=== PATIENT | female | born 1970 | race Hispanic/Latino ===

== ENCOUNTER 2018-08-25 21:14 | Emergency (ER) | payer SELFPAY | END 2018-08-25 21:48 | disposition home or self-care (01) | LOC: ERS 21:14 | DX: M67.442 Ganglion, left hand (principal); Z86.73 Personal history of transient ischemic attack (TIA), and cerebral infarction without residual deficits | CPT/HCPCS: 99282 ==

== ENCOUNTER 2019-07-12 18:55 | Emergency (ER) | payer SELFPAY ==
[2019-07-12 19:55] LABS: #Basophils 0.1 thou/uL (0.0-0.2); #Eosinphils 0.1 thou/uL (0.0-0.7); #Lymphocytes 2.7 thou/uL (1.20-3.40); #Monocytes 0.4 thou/uL (0.11-0.59); #Neutrophils 3.4 thou/uL (1.40-6.50); %Basophils 1.2 % (0.0-1.0); %Lymphocytes 40.4 % (21.0-51.0); %Monocytes 5.6 % (0.0-10.0); %Neutrophils 50.8 % (42.0-75.0); Hemoglobin 12.9 g/dL (12.0-16.0); Mean Corpuscular HGB CONC 33.6 g/dL (32.0-36.0); Mean Corpuscular Hemoglobin 28.6 pg (27.0-31.0); Mean Corpuscular Volume 85.1 fL (78.0-98.0); Mean Platelet Volume 8.6 fL (7.4-10.4); Platelet Count 242 thou/uL (130-400); Red Blood Cell (RBC) Count 4.52 mill/uL (4.20-5.40); White Blood Cell (WBC) Count 6.8 thou/uL (4.8-10.8)
[2019-07-12] MEDS ORDERED: Dexamethasone 4 mg/ml Vial ONE (20:06)
[2019-07-12] MEDS ORDERED: Ketorolac Tromethamine 30 MG/ML VIAL ONE (20:06)
[2019-07-12] MEDS ORDERED: Metoclopramide HCl 10 MG/2 ML VIAL ONE ×2 (20:06→20:07)
[2019-07-12 20:12] LABS: Bacteria/HPF None Seen HPF (None Seen); Bilirubin Negative (Negative); Blood, Urine 2+ (Negative); Clarity Clear (Clear); Glucose, Urine (Dipstick) Normal (Negative); Leukocyte Negative Leu/uL (Negative); Nitrite Negative (Negative); Protein, Urine (Dipstick) Negative (Neg-Trace); Squamous Epithelial 0-3 HPF (0-3); Urobilinogen Normal mg/dL (Less than 2); WBC/HPF 0-3 HPF (0-3)
[2019-07-12 20:16] LABS: ALT (SGPT) 17 U/L (8-55); AST (SGOT) 16 U/L (5-34); Albumin 4.5 g/dL (3.5-5.0); Alkaline Phosphatase 90 U/L (40-110); Anion Gap 13 mmol/L (10-20); BUN (Urea Nitrogen) 12 mg/dL (7.0-18.7); Bilirubin, Total 0.2 mg/dL (0.2-1.2); CK (CPK) 110 U/L (29-168); Calc. Creatinine Clearance 0 mL/min (70-130); Calcium 9.4 mg/dL (7.8-10.44); Carbon Dioxide 23 mmol/L (22-29); Chloride 106 mmol/L (98-107); Estimated GFR-MDRD 88; Globulin 3.2 g/dL (2.4-3.5); Glucose 105 mg/dL (70-105); Potassium 3.7 mmol/L (3.5-5.1); Protein, Total 7.7 g/dL (6.0-8.3); Sodium 138 mmol/L (136-145)
--- NOTE | 2019-07-12 20:32 | RAD ---
Chest AP view INDICATION: Shortness of breath and asthma COMPARISON: None FINDINGS: Lungs:The lungs are clear Cardiac silhouette:The cardiomediastinal silhouette appears within normal limits. Pulmonary vasculature:Normal Pleural spaces:No pleural effusion or pneumothorax is demonstrated. Upper abdomen:No abnormality seen. Osseous structures: No acute osseous abnormality. Additional findings:None. IMPRESSION: No acute cardiopulmonary abnormality.
--- NOTE | 2019-07-12 21:11 | CT ---
BRAIN CT WITHOUT IV CONTRAST: History: Headache. FINDINGS: No focal mass or midline shift. No intra or extraaxial hemorrhage. Sinuses and mastoids are clear. Th ere is a small amount of air within some of the veins in the left infratemporal fossa and scalp. IMPRESSION: No mass or bleed or other significant acute intracranial process. POS: RRE
== END 2019-07-12 22:12 | disposition home or self-care (01) ==
LOC: ERS 18:55
DX: I10 Essential (primary) hypertension (principal); R51 Headache
CPT/HCPCS: 70450; 71045; 80053; 81003; 81015; 82550; 84484; 85025; 93005; 96365; 96366; 96375; J1100; J1885; J2765

== ENCOUNTER 2019-12-05 08:56 | Emergency (ER) | payer BC ==
[2019-12-05] MEDS ORDERED: Aspirin Chewable 81 MG TAB ONE (09:15)
[2019-12-05 09:48] LABS: #Basophils 0.1 thou/uL (0.0-0.2); #Eosinphils 0.2 thou/uL (0.0-0.7); #Lymphocytes 3.1 thou/uL (1.20-3.40); #Monocytes 0.7 thou/uL (0.11-0.59); #Neutrophils 5.9 thou/uL (1.40-6.50); %Basophils 0.7 % (0.0-1.0); %Eosinophils 2.4 % (0.0-10.0); %Monocytes 7.4 % (0.0-10.0); %Neutrophils 58.6 % (42.0-75.0); Hemoglobin 12.3 g/dL (12.0-16.0); Mean Corpuscular HGB CONC 34.4 g/dL (32.0-36.0); Mean Corpuscular Hemoglobin 29.3 pg (27.0-31.0); Mean Corpuscular Volume 85.4 fL (78.0-98.0); Mean Platelet Volume 8.5 fL (7.4-10.4); Platelet Count 276 thou/uL (130-400); RBC Distribution Width 12.1 % (11.5-14.5); White Blood Cell (WBC) Count 10.1 thou/uL (4.8-10.8)
[2019-12-05 10:02] LABS: ALT (SGPT) 34 U/L (8-55); AST (SGOT) 28 U/L (5-34); Albumin 4.3 g/dL (3.5-5.0); Alkaline Phosphatase 119 U/L (40-110); Anion Gap 15 mmol/L (10-20); BUN (Urea Nitrogen) 13 mg/dL (7.0-18.7); Bilirubin, Total 0.3 mg/dL (0.2-1.2); Calc. Creatinine Clearance 0 mL/min (70-130); Calcium 9.7 mg/dL (7.8-10.44); Carbon Dioxide 22 mmol/L (22-29); Chloride 104 mmol/L (98-107); Estimated GFR-MDRD Greater than 90; Globulin 3.7 g/dL (2.4-3.5); Glucose 122 mg/dL (70-105); Potassium 3.7 mmol/L (3.5-5.1); Sodium 137 mmol/L (136-145)
--- NOTE | 2019-12-05 10:03 | RAD ---
PORTABLE CHEST: INDICATION: Chest pain. COMPARISON: 07/12/2019. FINDINGS: The lungs appear clear. Vasculature normal. Heart and mediastinum appear normal. IMPRESSION: No acute finding. No interval change. POS: AGW
--- NOTE | 2019-12-06 10:34 | EKG ---
Test Reason : Blood Pressure : / mmHG Vent. Rate : 073 BPM Atrial Rate : 073 BPM P-R Int : 146 ms QRS Dur : 076 ms QT Int : 364 ms P-R-T Axes : -04 038 071 degrees QTc Int : 401 ms Normal sinus rhythm Normal ECG Confirmed by TRIXIE FERRARA DO ([id number]), book or script editor BERE [id number] ([id number]) on 12/06/2019 10:34:25 AM Referred By: Confirmed By:TRIXIE FERRARA DO
== END 2019-12-05 10:55 | disposition home or self-care (01) ==
LOC: ERS 08:56
DX: R09.1 Pleurisy (principal); R07.89 Other chest pain; I10 Essential (primary) hypertension; Z86.73 Personal history of transient ischemic attack (TIA), and cerebral infarction without residual deficits; W22.8XXA Striking against or struck by other objects, initial encounter
CPT/HCPCS: 36415; 71045; 80053; 84484; 85025; 93005

== ENCOUNTER 2020-03-25 23:18 | Emergency (ER) | payer BC | END 2020-03-25 23:54 | disposition home or self-care (01) | LOC: ERS 23:18 | DX: T88.1XXA Other complications following immunization, not elsewhere classified, initial encounter (principal); R53.81 Other malaise; I10 Essential (primary) hypertension | CPT/HCPCS: 99283 ==

== ENCOUNTER 2021-04-01 08:22 | Inpatient (IN) | payer BC, SELFPAY ==
[2021-04-01 08:57] LABS: #Basophils 0.1 thou/uL (0.0-0.2); #Eosinphils 0.3 thou/uL (0.0-0.7); #Lymphocytes 3.2 thou/uL (1.20-3.40); #Monocytes 1.1 thou/uL (0.11-0.59); #Neutrophils 8.3 thou/uL (1.40-6.50); %Basophils 0.4 % (0.0-1.0); %Eosinophils 2.4 % (0.0-10.0); %Lymphocytes 24.4 % (21.0-51.0); %Monocytes 8.7 % (0.0-10.0); %Neutrophils 64.1 % (42.0-75.0); Hemoglobin 12.8 g/dL (12.0-16.0); Mean Corpuscular HGB CONC 34.9 g/dL (32.0-36.0); Mean Corpuscular Hemoglobin 30.5 pg (27.0-31.0); Mean Corpuscular Volume 87.2 fL (78.0-98.0); Mean Platelet Volume 8.4 fL (7.4-10.4); Platelet Count 263 thou/uL (130-400); RBC Distribution Width 12.2 % (11.5-14.5); Red Blood Cell (RBC) Count 4.21 mill/uL (4.20-5.40); White Blood Cell (WBC) Count 12.9 thou/uL (4.8-10.8)
[2021-04-01 09:18] LABS: ALT (SGPT) 38 U/L (8-55); AST (SGOT) 31 U/L (5-34); Albumin 4.2 g/dL (3.5-5.0); Alkaline Phosphatase 120 U/L (40-110); Anion Gap 16 mmol/L (10-20); BUN (Urea Nitrogen) 11 mg/dL (7.0-18.7); Bilirubin, Total 0.5 mg/dL (0.2-1.2); Calc. Creatinine Clearance 0 mL/min (70-130); Calcium 9.2 mg/dL (7.8-10.44); Carbon Dioxide 22 mmol/L (22-29); Chloride 101 mmol/L (98-107); Globulin 3.5 g/dL (2.4-3.5); Glucose 124 mg/dL (70-105); Lipase 312 U/L (8-78); Potassium 3.5 mmol/L (3.5-5.1); Protein, Total 7.7 g/dL (6.0-8.3); Sodium 135 mmol/L (136-145)
[2021-04-01] MEDS ORDERED: Ondansetron PF 4 MG/2 ML Vial ONE ×2 (09:26→11:08)
[2021-04-01] MEDS ORDERED: Morphine 4 MG/ML VIAL ONE ×2 (09:26→10:05)
[2021-04-01] MEDS ORDERED: Famotidine/PF 20 mg/2ml Vial ONE ×2 (09:26→09:28)
[2021-04-01 09:59] LABS: Bacteria/HPF None Seen HPF (None Seen); Bilirubin Negative (Negative); Blood, Urine 1+ (Negative); Clarity Clear (Clear); Glucose, Urine (Dipstick) Normal (Negative); Ketone, Urine Negative (Negative); Leukocyte Negative Leu/uL (Negative); Nitrite Negative (Negative); Protein, Urine (Dipstick) 30 mg/dL (Neg-Trace); Urobilinogen Normal mg/dL (Less than 2); WBC/HPF 0-3 HPF (0-3); pH, Urine 6.5 (5.0-9.0)
[2021-04-01 10:00] LABS: Specific Gravity, Urine Greater than 1.060 (1.002-1.036)
[2021-04-01 10:02] LABS: Pregnancy Test - Urine (BHCG) Negative (Negative); Specific Gravity Greater than 1.006 (1.002-1.036)
[2021-04-01 10:03] LABS: Pregu Control Background? CLEAR/WHITE (CLR/WHITE); Pregu Control Bar Appear? YES (CONTROL BAR)
[2021-04-01] MEDS ORDERED: HYDROcodone/Acetaminophen 5/325 mg Tablet PO PRN (10:55)
[2021-04-01] MEDS ORDERED: Acetaminophen 325 MG TAB PO PRN (10:55)
[2021-04-01] MEDS ORDERED: Ondansetron ODT 4 MG TAB PO PRN (10:55)
[2021-04-01] MEDS ORDERED: Ondansetron PF 4 MG/2 ML Vial IVP PRN (10:55)
[2021-04-01] MEDS ORDERED: Acetaminophen 650 MG Suppository PR PRN (10:55)
[2021-04-01] MEDS ORDERED: Iopamidol-370 76% 500 ML 1 ML ONE (11:05)
[2021-04-01 11:37] LABS: Cholesterol 147 mg/dl (< 200 Desired); HDL Cholesterol 49 mg/dL (>60 Neg Risk); LDL Cholesterol, Calculated 79 mg/dL; Magnesium 1.9 mg/dL (1.6-2.6); Phosphorus 4.1 mg/dL (2.3-4.7); Triglycerides 97 mg/dL (Less than 150)
[2021-04-01] MEDS ORDERED: HYDROmorphone 0.5 MG/0.5 ML SYRINGE SLOW IVP SCH (13:00)
[2021-04-01 13:26] VITALS: BMI 28.3
[2021-04-01] MEDS ORDERED: Morphine 4 MG/ML VIAL SLOW IVP PRN (14:27)
[2021-04-01] MEDS ORDERED: Lactated Ringer's 1,000 ML IV SCH (14:45)
[2021-04-01] MEDS ORDERED: diphenhydrAMINE 50 MG/ML VIAL IM PRN (14:53)
[2021-04-01] MEDS ORDERED: Naloxone HCl 0.4 mg/ml Vial IV PRN (14:53)
[2021-04-01] MEDS ORDERED: Zolpidem Tartrate 5 MG TAB PO PRN (14:53)
[2021-04-01] MEDS ORDERED: diphenhydrAMINE 25 MG CAP PO PRN (14:53)
[2021-04-01] MEDS ORDERED: diphenhydrAMINE 50 MG/ML VIAL IVP PRN (14:53)
[2021-04-01] MEDS ORDERED: Communication Order-Pharmacy FS SCH (15:00)
[2021-04-01] MEDS ORDERED: cefTRIAXone\\ROCEPHIN 1 GM in Sodium Chloride 0.9% 100 ML IVPB SCH (15:00)
[2021-04-01] MEDS: Lactated Ringer's 1,000 ML IV SCH ×3 (16:00→22:23)
[2021-04-01 17:34] LABS: Bacteria/HPF None Seen HPF (None Seen); Bilirubin Negative (Negative); Blood, Urine Trace (Negative); Clarity Clear (Clear); Glucose, Urine (Dipstick) Normal (Negative); Ketone, Urine 20 mg/dL (Negative); Leukocyte Negative Leu/uL (Negative); Nitrite Negative (Negative); Protein, Urine (Dipstick) 10 mg/dL (Neg-Trace); RBC/HPF 0-3 HPF (0-3); Specific Gravity, Urine 1.023 (1.002-1.036); Squamous Epithelial None Seen HPF (0-3); Urobilinogen Normal mg/dL (Less than 2); WBC/HPF 0-3 HPF (0-3)
[2021-04-01] MEDS: Promethazine HCl 25 MG/ML VIAL IM PRN (17:52)
[2021-04-01] MEDS: HYDROmorphone 10 mg/100 ml CADD IVPB PRN (19:05)
[2021-04-01 21:13] LABS: SARS-CoV-2 NAA Rapid Test Not Detected (NotDetected)
[2021-04-01] MEDS: Famotidine 20 MG TAB PO SCH (21:45)
[2021-04-02] MEDS: Lactated Ringer's 1,000 ML IV SCH ×3 (01:48→10:18)
[2021-04-02 04:10] LABS: ALT (SGPT) 29 U/L (8-55); AST (SGOT) 21 U/L (5-34); Albumin 3.4 g/dL (3.5-5.0); Alkaline Phosphatase 89 U/L (40-110); Anion Gap 11 mmol/L (10-20); BUN (Urea Nitrogen) 5 mg/dL (7.0-18.7); Bilirubin, Total 0.5 mg/dL (0.2-1.2); Calc. Creatinine Clearance 120 mL/min (70-130); Calcium 8.2 mg/dL (7.8-10.44); Carbon Dioxide 23 mmol/L (22-29); Chloride 104 mmol/L (98-107); Globulin 2.7 g/dL (2.4-3.5); Glucose 106 mg/dL (70-105); Lipase 91 U/L (8-78); Potassium 3.6 mmol/L (3.5-5.1); Protein, Total 6.1 g/dL (6.0-8.3); Sodium 134 mmol/L (136-145)
[2021-04-02] MEDS ORDERED: Electrolyte Replacement Protocol 1 EACH FS SCH (07:00)
[2021-04-02 07:35] LABS: Magnesium 1.7 mg/dL (1.6-2.6)
[2021-04-02] MEDS ORDERED: Magnesium 2 GM/50 ML 2 GM in Premix Bag 1 BAG IVPB SCH (08:45)
[2021-04-02] MEDS: Famotidine 20 MG TAB PO SCH (10:06)
[2021-04-02] MEDS: Amlodipine 5 MG TAB PO SCH (10:06)
[2021-04-02] MEDS: Enoxaparin Sodium 40 MG/0.4 ML SYRINGE SC SCH (10:19)
[2021-04-02] MEDS: Promethazine HCl 25 MG/ML VIAL IM PRN (11:22)
[2021-04-02] MEDS ORDERED: Piperacillin/Tazobactam 3.375 GM in Sodium Chloride 0.9% 100 ML IVPB SCH (14:00)
[2021-04-02] MEDS: D5 1/2 NS w/10 mEq KCl 1,000 ML/1,000 ML BAG IV SCH ×2 (16:23→21:00)
[2021-04-02] MEDS: HYDROmorphone 10 mg/100 ml CADD IVPB PRN (18:56)
[2021-04-02] MEDS: Pantoprazole 40 MG VIAL IVP SCH (21:00)
[2021-04-02] MEDS: Piperacillin/Tazobactam 3.375 GM in Sodium Chloride 0.9% 100 ML IVPB SCH (21:00)
[2021-04-02] MEDS: Ondansetron PF 4 MG/2 ML Vial IVP PRN (21:30)
[2021-04-03] MEDS: D5 1/2 NS w/10 mEq KCl 1,000 ML/1,000 ML BAG IV SCH ×5 (02:31→18:04)
[2021-04-03 04:00] LABS: #Eosinphils 0.3 thou/uL (0.0-0.7); #Lymphocytes 1.4 thou/uL (1.20-3.40); #Monocytes 0.7 thou/uL (0.11-0.59); #Neutrophils 6.6 thou/uL (1.40-6.50); %Basophils 0.5 % (0.0-1.0); %Eosinophils 2.8 % (0.0-10.0); %Lymphocytes 15.8 % (21.0-51.0); %Monocytes 7.3 % (0.0-10.0); %Neutrophils 73.6 % (42.0-75.0); Hemoglobin 9.8 g/dL (12.0-16.0); Mean Corpuscular HGB CONC 34.6 g/dL (32.0-36.0); Mean Corpuscular Hemoglobin 30.7 pg (27.0-31.0); Mean Corpuscular Volume 88.5 fL (78.0-98.0); Mean Platelet Volume 8.4 fL (7.4-10.4); Platelet Count 202 thou/uL (130-400); RBC Distribution Width 11.9 % (11.5-14.5); Red Blood Cell (RBC) Count 3.21 mill/uL (4.20-5.40)
[2021-04-03 04:03] LABS: Hemoglobin A1c 5.2 % (4.0-6.0)
[2021-04-03 04:21] LABS: ALT (SGPT) 34 U/L (8-55); AST (SGOT) 22 U/L (5-34); Albumin 3.4 g/dL (3.5-5.0); Alkaline Phosphatase 91 U/L (40-110); Anion Gap 16 mmol/L (10-20); BUN (Urea Nitrogen) 9 mg/dL (7.0-18.7); Bilirubin, Total 0.4 mg/dL (0.2-1.2); Calc. Creatinine Clearance 108 mL/min (70-130); Calcium 8.1 mg/dL (7.8-10.44); Carbon Dioxide 21 mmol/L (22-29); Chloride 103 mmol/L (98-107); Globulin 2.9 g/dL (2.4-3.5); Glucose 148 mg/dL (70-105); Lipase 29 U/L (8-78); Potassium 3.7 mmol/L (3.5-5.1); Protein, Total 6.3 g/dL (6.0-8.3); Sodium 136 mmol/L (136-145)
[2021-04-03] MEDS ORDERED: Magnesium 2 GM/50 ML 2 GM in Premix Bag 1 BAG IVPB SCH (05:00)
[2021-04-03] MEDS: Piperacillin/Tazobactam 3.375 GM in Sodium Chloride 0.9% 100 ML IVPB SCH ×2 (05:29→14:47)
[2021-04-03] MEDS: Ondansetron PF 4 MG/2 ML Vial IVP PRN (05:29)
[2021-04-03] MEDS: Enoxaparin Sodium 40 MG/0.4 ML SYRINGE SC SCH (08:45)
[2021-04-03] MEDS: Pantoprazole 40 MG VIAL IVP SCH ×2 (08:45→20:22)
[2021-04-03] MEDS: Amlodipine 5 MG TAB PO SCH (08:45)
[2021-04-03] MEDS: Polyethylene Glycol 3350 17 GM Packet PO SCH (08:46)
[2021-04-03] MEDS ORDERED: Clotrimazole 1% Cream 15 GM TUBE TOP SCH (11:30)
[2021-04-03] MEDS: Clotrimazole 1 % Cream 30 GM TUBE TOP SCH (14:47)
[2021-04-03] MEDS ORDERED: D5 1/2 NS w/10 mEq KCl 1,000 ML/1,000 ML BAG IV SCH (15:06)
[2021-04-03] MEDS: Senokot S 8.6-50 MG TAB PO SCH (20:25)
[2021-04-04] MEDS: Morphine 4 MG/ML VIAL SLOW IVP PRN ×3 (03:58→14:32)
[2021-04-04] MEDS: D5 1/2 NS w/10 mEq KCl 1,000 ML/1,000 ML BAG IV SCH ×2 (04:00→22:59)
[2021-04-04 04:27] LABS: ALT (SGPT) 56 U/L (8-55); AST (SGOT) 46 U/L (5-34); Albumin 3.8 g/dL (3.5-5.0); Alkaline Phosphatase 143 U/L (40-110); Anion Gap 12 mmol/L (10-20); BUN (Urea Nitrogen) 6 mg/dL (7.0-18.7); Bilirubin, Total 0.6 mg/dL (0.2-1.2); Calc. Creatinine Clearance 105 mL/min (70-130); Calcium 8.6 mg/dL (7.8-10.44); Carbon Dioxide 27 mmol/L (22-29); Chloride 102 mmol/L (98-107); Globulin 3.2 g/dL (2.4-3.5); Glucose 105 mg/dL (70-105); Lipase 23 U/L (8-78); Potassium 3.7 mmol/L (3.5-5.1); Sodium 137 mmol/L (136-145)
[2021-04-04] MEDS: Enoxaparin Sodium 40 MG/0.4 ML SYRINGE SC SCH (08:45)
[2021-04-04] MEDS: Pantoprazole 40 MG VIAL IVP SCH ×2 (08:45→21:07)
[2021-04-04] MEDS: Polyethylene Glycol 3350 17 GM Packet PO SCH (08:45)
[2021-04-04] MEDS: Senokot S 8.6-50 MG TAB PO SCH ×2 (08:45→21:04)
[2021-04-04] MEDS ORDERED: Magnevist 469MG/ML 20 ML VIAL ONE (09:49)
[2021-04-04] MEDS ORDERED: PROPOFOL 200 MG/20 ML VIAL ONE (10:20)
[2021-04-04] MEDS ORDERED: Lidocaine 1% PF 5 ML VIAL ONE (10:20)
[2021-04-04] MEDS: Piperacillin/Tazobactam 3.375 GM in Sodium Chloride 0.9% 100 ML IVPB SCH ×2 (10:44→18:31)
[2021-04-04] MEDS: Ondansetron PF 4 MG/2 ML Vial IVP PRN (11:08)
[2021-04-04] MEDS: Amlodipine 5 MG TAB PO SCH (12:03)
[2021-04-04] MEDS: Clotrimazole 1 % Cream 30 GM TUBE TOP SCH (14:40)
[2021-04-04] MEDS ORDERED: Labetalol HCl 100 MG/20 ML VIAL SLOW IVP PRN (15:53)
[2021-04-04] MEDS ORDERED: diphenhydrAMINE 25 MG CAP PO PRN (20:27)
[2021-04-05] MEDS: Piperacillin/Tazobactam 3.375 GM in Sodium Chloride 0.9% 100 ML IVPB SCH ×2 (00:15→09:57)
[2021-04-05] MEDS: D5 1/2 NS w/10 mEq KCl 1,000 ML/1,000 ML BAG IV SCH (00:16)
[2021-04-05] MEDS: Morphine 4 MG/ML VIAL SLOW IVP PRN (04:11)
[2021-04-05 07:40] VITALS: BP 126/80; TEMP 97.5
[2021-04-05] MEDS: Polyethylene Glycol 3350 17 GM Packet PO SCH (08:18)
[2021-04-05] MEDS: Senokot S 8.6-50 MG TAB PO SCH (08:18)
[2021-04-05] MEDS: Enoxaparin Sodium 40 MG/0.4 ML SYRINGE SC SCH (08:26)
[2021-04-05] MEDS: Pantoprazole 40 MG VIAL IVP SCH (08:26)
[2021-04-05] MEDS: Amlodipine 5 MG TAB PO SCH (08:26)
[2021-04-05 08:44] LABS: ALT (SGPT) 64 U/L (8-55); AST (SGOT) 40 U/L (5-34); Albumin 3.8 g/dL (3.5-5.0); Alkaline Phosphatase 163 U/L (40-110); Anion Gap 11 mmol/L (10-20); BUN (Urea Nitrogen) 10 mg/dL (7.0-18.7); Bilirubin, Total 0.5 mg/dL (0.2-1.2); Calc. Creatinine Clearance 92 mL/min (70-130); Carbon Dioxide 25 mmol/L (22-29); Chloride 105 mmol/L (98-107); Globulin 3.4 g/dL (2.4-3.5); Glucose 162 mg/dL (70-105); Potassium 4.1 mmol/L (3.5-5.1); Protein, Total 7.2 g/dL (6.0-8.3); Sodium 137 mmol/L (136-145)
[2021-04-05] MEDS: Clotrimazole 1 % Cream 30 GM TUBE TOP SCH (12:01)
== END 2021-04-05 15:45 | disposition home or self-care (01) | DRG 439 ==
LOC: ERS 08:22 → ONC 10:54
PROVIDERS: ADMIT Family Medicine; ATTEND Internal Medicine
PROC: 0DB78ZX Excision of Stomach, Pylorus, Via Natural or Artificial Opening Endoscopic, Diagnostic (ICD-10-PCS; principal; 2021-04-04)
DX: K85.00 Idiopathic acute pancreatitis without necrosis or infection (principal); E87.1 Hypo-osmolality and hyponatremia; Z20.822 Contact with and (suspected) exposure to COVID-19; I10 Essential (primary) hypertension; E83.42 Hypomagnesemia; B35.3 Tinea pedis; K29.60 Other gastritis without bleeding; Z88.8 Allergy status to other drugs, medicaments and biological substances
CPT/HCPCS: 36415; 71045; 74177; 74183; 76705; 80053; 80061; 81003; 81015; 81025; 82550; 82787; 83036; 83615; 83690; 83735; 84100; 84484; 85025; 87040; 87086; 88305; 88312; 93005; 96374; 96375; 96376; A9579; C9113; J0696; J1170; J1650; J2270; J2405; J2543; J2550; J2704; J3475; J3480; J3490; J7120; Q0162; Q9967; S0028; U0002